=== PATIENT | female | born 1990 | race African-American/Black ===

== ENCOUNTER 2017-10-24 23:39 | Outpatient (CLI) | payer MEDICAID ==
[2017-10-25 00:41] LABS: APPEARANCE,URINE SLIGHTLY-CLOUDY; BILIRUBIN,URINE NEGATIVE (NEGATIVE); COLOR,URINE YELLOW; GLUCOSE, URINE NEGATIVE (NEGATIVE); KETONES,URINE NEGATIVE (NEGATIVE); LEUKOCYTE ESTERASE,URINE LARGE (NEGATIVE); NITRITE,URINE NEGATIVE (NEGATIVE); PROTEIN,URINE NEGATIVE (NEGATIVE); URINE SPECIFIC GRAVITY 1.009; UROBILINOGEN,URINE NEGATIVE mg/dL (<2.0)
[2017-10-25] MEDS ORDERED: CEFTRIAXONE INJ 1000 MG VIAL IM ONE (00:55)
[2017-10-25] MEDS ORDERED: LIDOCAINE 1% INJ-PF (10 MG/ML) 30 ML SDV INJ ONE (00:55)
[2017-10-25] MEDS ORDERED: LIDOCAINE 1% INJ-PF (10 MG/ML) 30 ML SDV ONE (00:57)
[2017-10-25] MEDS ORDERED: CEFTRIAXONE INJ 1000 MG VIAL ONE (00:57)
[2017-10-25 02:31] LABS: URINE AMPHETAMINES SCREEN NEGATIVE; URINE BARBITURATES SCREEN NEGATIVE; URINE BENZODIAZEPINES SCREEN NEGATIVE; URINE COCAINE SCREEN NEGATIVE; URINE MARIJUANA (THC) SCREEN NEGATIVE; URINE METHADONE SCREEN NEGATIVE; URINE PHENCYCLIDINE SCREEN NEGATIVE
== END 2017-10-25 01:21 | disposition home or self-care (01) ==
LOC: LC 23:39
PROVIDERS: ATTEND Obstetrics & Gynecology
PROC: 4A1HXCZ Monitoring of Products of Conception, Cardiac Rate, External Approach (ICD-10-PCS; principal; 2017-10-24)
DX: O23.42 Unspecified infection of urinary tract in pregnancy, second trimester (principal); Z3A.23 23 weeks gestation of pregnancy
CPT/HCPCS: 59899; 81001; 80307; J3490; J0696

== ENCOUNTER 2018-02-18 04:10 | Inpatient (IN) | payer MEDICAID ==
[2018-02-18 04:35] LABS: APPEARANCE,URINE SLIGHTLY-CLOUDY; BILIRUBIN,URINE NEGATIVE (NEGATIVE); COLOR,URINE YELLOW; GLUCOSE, URINE NEGATIVE (NEGATIVE); KETONES,URINE NEGATIVE (NEGATIVE); LEUKOCYTE ESTERASE,URINE LARGE (NEGATIVE); NITRITE,URINE NEGATIVE (NEGATIVE); PROTEIN,URINE NEGATIVE (NEGATIVE); URINE SPECIFIC GRAVITY 1.004
[2018-02-18 04:50] LABS: URINE AMPHETAMINES SCREEN NEGATIVE; URINE BARBITURATES SCREEN NEGATIVE; URINE BENZODIAZEPINES SCREEN NEGATIVE; URINE COCAINE SCREEN NEGATIVE; URINE MARIJUANA (THC) SCREEN NEGATIVE; URINE METHADONE SCREEN NEGATIVE; URINE PHENCYCLIDINE SCREEN NEGATIVE
[2018-02-18] MEDS ORDERED: RINGERS SOLUTION,LACTATED 1,000 ML IV PRN (05:03)
[2018-02-18] MEDS ORDERED: PENICILLIN G-K 5 MILLION UNIT VIAL ONE ×2 (05:06→09:08)
[2018-02-18] MEDS ORDERED: OXYTOCIN/NORMAL SALINE 20 UNIT/1,000 ML RTUINJ ONE ×2 (05:06→09:07)
[2018-02-18] MEDS ORDERED: OXYTOCIN 10 UNIT/ML VIAL ONE (05:06)
[2018-02-18] MEDS ORDERED: MISOPROSTOL 0.2 MG TABLET ONE (05:06)
[2018-02-18] MEDS ORDERED: LIDOCAINE 1% INJ-PF (10 MG/ML) 30 ML SDV ONE (05:06)
[2018-02-18] MEDS ORDERED: CLINDAMYCIN 900 MG/D5W RTU 50 ML IV SCH (05:15)
[2018-02-18] MEDS ORDERED: RINGERS SOLUTION,LACTATED 1,000 ML IV ONE (05:20)
[2018-02-18] MEDS ORDERED: PENICILLIN G POTASSIUM 5,000,000 UNIT in DEXTROSE 5%-WATER 100 ML IV ONE (05:20)
[2018-02-18 05:27] LABS: HEMATOCRIT 29.1 % (36.0-47.0); HEMOGLOBIN 10.4 g/dL (12.0-15.5); MEAN CORPUSCULAR HGB CONC 35.7 g/dL (32.0-36.0); MEAN CORPUSCULAR VOLUME 93 fl (80-97); PLATELET COUNT 112 10^3/uL (150-450); RED BLOOD COUNT 3.14 10^6/uL (3.72-5.28); RED CELL DISTRIBUTION WIDTH 14.3 % (11.5-14.0); WHITE BLOOD COUNT 8.1 10^3/uL (4.0-10.5)
[2018-02-18 05:55] LABS: ABSOLUTE LYMPHOCYTES# (MANUAL) 2.8 10^3/uL (0.5-4.7); ABSOLUTE MONOCYTES # (MANUAL) 0.4 10^3/uL (0.1-1.4); ABSOLUTE NEUTROPHILS# (MANUAL) 4.6 10^3/uL (1.7-8.2); ANISOCYTOSIS SLIGHT; BAND NEUTROPHILS % (MANUAL) 1 % (3-5); BASOPHILS % (MANUAL) 0 % (0-2); EOSINOPHILS % (MANUAL) 3 % (0-6); LYMPHOCYTES % (MANUAL) 35 % (13-45); MONOCYTES % (MANUAL) 5 % (3-13); PLATELET COMMENT DECREASED; PLATELET LARGE PRESENT; SEGMENTED NEUTROPHILS % (MAN) 56 % (42-78); TOTAL CELLS COUNTED 100
[2018-02-18] MEDS ORDERED: EPHEDRINE SULFATE INJ 50 MG/1 ML AMPULE ONE (05:56)
[2018-02-18] MEDS ORDERED: FENTANYL/BUPIVACAINE/NS/PF 300 MCG/150 ML RTUINJ EPI ONE (05:58)
[2018-02-18] MEDS ORDERED: BUPIVACAINE HCL 0.5 % INJ/PF 30 ML SDV ONE (06:25)
--- NOTE | 2018-02-18 06:27 | Admission Physical ---
Datetime Report Generated by CPN: 02/18/2018 06:27 CURRENT ADMISSION Chief Complaint: Uterine Contractions Indication for Induction: Not Applicable Admit Impression : Term, Intrauterine ; Active Labor Admit Plan: Admit to Unit; Initiate Labor Protocol ALLERGIES Medication Allergies: No Medication Allergies: No Known Allergies (10/25/2017) Latex: No Latex Allergies Food Allergies: NKA Environmental Allergies: NKA OBSTETRICAL HISTORY EDC: 02/19/2018 00:00 : 3 Para: 2 Term: 1 : 1 SAB: 0 IAB: 0 Ectopic: 0 Livin Cesareans: 0 VBACs: 0 Multiple Births: 0 Gestational Diabetes: No Rh Sensitization: No Incompetent Cervix: No NIECY: No Infertility: No ART Treatment: No Uterine Anomaly: No IUGR: No Hx Previous C/S: No Macrosomia: No Hx Loss/Stillborn: No PIH: No Hx : No Placenta Previa/Abruption: No Depression/PP Depression: No PTL/PROM: No Post Hemorrhage: No Current Procedures: Ultrasound; NST Obstetrical History Comments: G1 - 2014 Baby boy NVD @ 38 weeks G2 - 2016 Baby girl NVD @ 32 weeks after SROM G3 - Current SEE RECORDS Alcohol: No Marijuana : No Cocaine: No Other Illicit Drugs: No Cigarettes: Never Smoker. [id number] MEDICAL HISTORY Diabetes: No Blood Transfusion: No Pulmonary Disease (Asthma, TB): No Breast Disease: No Hypertension: No Assistant Professor Of Art Surgery: No Heart Disease: No Hosp/Surgery: No Autoimmune Disorder: No Anesthetic Complications: No Kidney Disease: No Abnormal Pap Smear: No Neuro/Epilepsy: No Psychiatric Disorders: No Other Medical Diseases: No Hepatitis/Liver Disease: No Significant Family History: No Varicosities/Phlebitis: No Trauma/Violence : No Thyroid Dysfunction: No INFECTIOUS HISTORY Gonorrhea: No Genital Herpes: No Chlamydia: Yes Tuberculosis: No Syphilis: No Hepatitis: No HIV/AIDS Exposure: No Rash or Viral Illness: No HPV: No Infectious History Comments: Chlamydia with first , Trich second , +GC/CHLAM, trich with this treated with rocephin in office PHYSICAL EXAM General: Normal HEENT: Normal Neurologic: Normal Thyroid: Normal Heart: Normal Lungs: Normal Breast: Normal Back: Normal Abdomen: Normal Genitourinary Exam: Deferred Extremities: Normal DTRs: Normal Pelvic Type: Adequate Vital Signs: Reviewed VAGINAL EXAM Dilatation: 6 Effacement: 75 Station: -1 MEMBRANES Membranes: Intact FETUS A EGA: 39.6 Monitoring: External US FHR- Baseline: 120 Variability: Moderate 6-25bpm Decelerations: None Presentation: Vertex Admit Comment: GBS pos PLANS FOR LABOR AND DELIVERY Labor and Delivery: None Pain Management: Epidural Feeding Preference: Formula Benefit of Breast Feed Discussed: Yes Circumcision: No INFORMED CONSENT Signature: with User ID: [email or web address]
[2018-02-18 06:58] LABS: CHLAM PCR NOT DETECTED (NOT DETECT); GON PCR NOT DETECTED (NOT DETECT)
--- NOTE | 2018-02-18 09:08 | L&D Progress Notes ---
PROGRESS NOTES Datetime Report Generated by CPN: 02/18/2018 09:08 PROGRESS NOTE Impression: Arrest of Dilatation/Descent Procedures: Artificial ROM; Sterile Vag Exam Plan: Augmentation Vital Signs : Reviewed; Within Normal Limits VAGINAL EXAM Dilatation: 6 Effacement: 75 Station: -1 Contractions: q 7-8 min MEMBRANES Membranes: Ruptured Amniotic Fluid Color: Clear FETUS A FHR - Baseline: 120 Monitoring: External US Variability: Moderate 6-25bpm Accelerations: 15X15 Decelerations: None FHR Category: Category I : 39.0 Presentation: Vertex SIGNATURE SIGNATURE: [id number] SIGNATURE: ,[id number] Signature: with User ID: [email or web address]
[2018-02-18] MEDS: PENICILLIN G POTASSIUM 2,500,000 UNIT in DEXTROSE 5%-WATER 50 ML IV SCH ×2 (09:27→20:56)
[2018-02-18] MEDS ORDERED: BENZOCAINE/MENTHOL AEROSOL SPRAY 56 ML TOP PRN (13:33)
[2018-02-18] MEDS ORDERED: MEASLES,MUMPS&RUBELLA VACC/PF 0.5 ML VIAL SUBCUT PRN (13:33)
[2018-02-18] MEDS ORDERED: OXYTOCIN/NORMAL SALINE 20 UNIT/1,000 ML RTUINJ IV PRN (13:33)
[2018-02-18] MEDS ORDERED: DIBUCAINE 1% OINTMENT 28 GM TP PRN (13:33)
[2018-02-18] MEDS ORDERED: ZOLPIDEM TARTRATE 5 MG TABLET PO PRN (13:33)
[2018-02-18] MEDS ORDERED: DIPH/PERTUSS(ACELL)/TETANUS VAC/PF 0.5 ML SYR (>=10YO) IM PRN (13:33)
[2018-02-18] MEDS ORDERED: ONDANSETRON HCL 8 MG TABLET PO PRN (13:37)
[2018-02-18] MEDS ORDERED: DIPHENHYDRAMINE HCL 25 MG CAPSULE PO PRN (13:38)
[2018-02-18] MEDS ORDERED: IBUPROFEN 800 MG TABLET ONE (13:44)
[2018-02-18] MEDS: IBUPROFEN 800 MG TABLET PO SCH ×2 (16:09→21:19)
[2018-02-18] MEDS: DOCUSATE SODIUM 100 MG CAPSULE PO SCH (18:09)
[2018-02-18] MEDS: FERROUS SULFATE 325 MG TABLET PO SCH (18:09)
[2018-02-18] MEDS: HYDROCODONE/ACETAMINOPHEN 5-325 MG TABLET PO PRN (20:13)
[2018-02-19] MEDS: IBUPROFEN 800 MG TABLET PO SCH ×3 (05:34→21:24)
[2018-02-19 06:49] LABS: HEMATOCRIT 26.8 % (36.0-47.0); HEMOGLOBIN 9.4 g/dL (12.0-15.5); MEAN CORPUSCULAR HEMOGLOBIN 32.6 pg (27.0-33.4); MEAN CORPUSCULAR HGB CONC 34.9 g/dL (32.0-36.0); MEAN CORPUSCULAR VOLUME 93 fl (80-97); PLATELET COUNT 114 10^3/uL (150-450); RED BLOOD COUNT 2.87 10^6/uL (3.72-5.28); RED CELL DISTRIBUTION WIDTH 14.1 % (11.5-14.0); WHITE BLOOD COUNT 12.6 10^3/uL (4.0-10.5)
[2018-02-19] MEDS: PRENATAL VITAMIN W DHA CAPSULE PO SCH (09:57)
[2018-02-19] MEDS: FERROUS SULFATE 325 MG TABLET PO SCH ×2 (09:57→18:19)
[2018-02-19] MEDS: DOCUSATE SODIUM 100 MG CAPSULE PO SCH ×2 (09:58→18:19)
[2018-02-19] MEDS: SENNOSIDES/DOCUSATE 8.6-50 MG 1 EACH TABLET PO SCH (09:58)
[2018-02-19] MEDS: FAMOTIDINE 20 MG TABLET PO PRN ×2 (09:58→21:24)
--- NOTE | 2018-02-19 10:48 | PDOC PROGRESS REPORT ---
Subjective-OB Progress Note for:: 02/19/18 Subjective: Pt doing well, no concerns. She reports light bleeding, reg diet and voiding without difficulty. Bonding with baby. Physical Exam (OB) Vital Signs: Temp Pulse Resp BP Pulse Ox 98.3 F 68 16 102/54 L 97 02/19/18 07:04 02/19/18 07:04 02/19/18 07:04 02/19/18 07:04 02/19/18 07:04 Intake & Output 02/18/18 02/19/18 02/20/18 07:59 06:59 06:59 Intake Total Balance Weight - Lochia Lochia Amount: Small 10-25 ml Lochia Color: Rubra/Red - Abdomen Description: Tender, Soft Hernia Present: No Fundal Description: Firm, Midline Fundal Height: u/u - u/2 Objective-Diagnostic Laboratory: 02/19/18 06:28 02/19/18 06:28 WBC 12.6 H RBC 2.87 L Hgb 9.4 L Hct 26.8 L MCV 93 MCH 32.6 MCHC 34.9 RDW 14.1 H Plt Count 114 L Assessment and Plan(PN) - Assessment and Plan (1) Vaginal delivery Is this a current diagnosis for this admission?: Yes - Time Spent with Patient Time with patient: Less than 15 minutes Medications reviewed and adjusted accordingly: Yes - Disposition Anticipated Discharge: Home Within: within 24 hours
[2018-02-19] MEDS: HYDROCODONE/ACETAMINOPHEN 5-325 MG TABLET PO PRN (18:18)
[2018-02-20] MEDS: IBUPROFEN 800 MG TABLET PO SCH ×2 (05:02→14:28)
--- NOTE | 2018-02-20 10:07 | PDOC DISCHARGE SUMMARY ---
Final Diagnosis Discharge Date: 02/20/18 - Final Diagnosis (1) Vaginal delivery Is this a current diagnosis for this admission?: Yes Discharge Data - Discharge Medication Prescriptions: Ibuprofen [Motrin 800 mg Tablet] 800 mg PO Q8HP PRN #60 tablet PRN Reason: Vit,Calc78/Iron/Folic [Prenatabs FA Tablet] 1 each PO DAILY #90 tablet Home Medications: Ferrous Sulfate [Feosol 325 mg Tablet] 325 mg PO BID tablet 02/20/18 Ibuprofen [Motrin 800 mg Tablet] 800 mg PO Q8HP PRN #60 tablet 02/20/18 Vit,Calc78/Iron/Folic [Prenatabs FA Tablet] 1 each PO DAILY #90 tablet 02/20/18 Procedures: NST Intrapartum Procedure(s): Spontaneous Vaginal Delivery - Diagnosis Test Laboratory: Temp Pulse Resp BP Pulse Ox 98.2 F 70 16 104/52 L 99 02/20/18 09:04 02/20/18 09:04 02/20/18 09:04 02/20/18 09:04 02/20/18 09:04 02/18/18 02/18/18 02/19/18 04:20 05:15 06:28 RBC 3.14 L 2.87 L Hgb 10.4 L 9.4 L Hct 29.1 L 26.8 L Urine Opiates Screen NEGATIVE - Discharge information/Instructions Discharge Activity: Balance Activity w/Rest, Pelvic Rest Discharge Diet: Regular Disposition: HOME, SELF-CARE Follow up with: [facility] in: 4, Weeks
[2018-02-20] MEDS: SENNOSIDES/DOCUSATE 8.6-50 MG 1 EACH TABLET PO SCH (10:30)
[2018-02-20] MEDS: DOCUSATE SODIUM 100 MG CAPSULE PO SCH (10:30)
[2018-02-20] MEDS: PRENATAL VITAMIN W DHA CAPSULE PO SCH (10:30)
[2018-02-20] MEDS: FAMOTIDINE 20 MG TABLET PO PRN (10:30)
[2018-02-20] MEDS: FERROUS SULFATE 325 MG TABLET PO SCH (10:30)
[2018-02-20] MEDS: HYDROCODONE/ACETAMINOPHEN 5-325 MG TABLET PO PRN (10:30)
[2018-02-20 14:19] VITALS: BP 100/55
--- NOTE | 2018-02-27 08:41 | Delivery Summary ---
Del Sum A-C Datetime Report Generated by CPN: 02/27/2018 08:41 DELIVERY PERSONNEL DELIVERY PERSONNEL: [id number] Delivery Doctor:: Raymond Jimenez MD Labor and Delivery Nurse:: Sabiha Reaves RNheel edge inker machine Nurse:: ANIL Sun Halver Machine Operator/WOOL CLASSER: Angelita Pearson, ECONOMIST RESEARCH ASSISTANT MATERNAL INFORMATION Delivery Anesthesia: Epidural Medications After Delivery: Pitocin Drip 20 Units/1000ml NSS Estimated Blood Loss (ml): 200 Maternal Complications: None Provider Comments: Pt C_P. Head delivered OA. Nuchal x 1 reduced. As anterior shoulder delivered, 2nd nuchal noted and reduced. Anterior and posterior shoulder delivered followed by rest of body. Baby placed on mom's abdomen. After 1min, cord clamped x 2 and cut. Placenta delivered intact with 3VC. Laceration repaired as noted. Fundus firm. LABOR SUMMARY EDC: 02/19/2018 00:00 No. Babies in Womb: 1 Attempted: No Labor Anesthesia: Epidural LABOR INFORMATION Reason for Induction: Not Applicable Onset of Labor: 02/19/2018 04:22 Complete Dilatation: 02/18/2018 12:24 Oxytocin: Augmentation Group B Beta Strep: Positive Antibiotics # of Doses: 2 Antibiotics Time of Last Dose: 915 Name of Antibiotic Given: PCN Steroids Given: None Reason Steroids Not Administered: Not Applicable MEMBRANES Membranes Rupture Method: Artificial Rupture of Membranes: 02/18/2018 09:03 Length of Rupture (hr): 3.85 Amniotic Fluid Color: Clear Amniotic Fluid Amount: Small STAGES OF LABOR Stage 1 hr: -16 Stage 1 min: -58 Stage 2 hr: 0 Stage 2 min: 30 Stage 3 hr: 25 Stage 3 min: 2 Total Time in Labor hr: 8 Total Time in Labor min: 34 VAGINAL DELIVERY Episiotomy: None Other Laceration: Left labial Laceration Repair: Yes Laceration Repair Note: Reapproximated with 3.0 [employer] in interrupted fashion Sponge Count Correct: N/A Sharps Count Correct: N/A CSECTION DELIVERY Primary Indication: N/A Secondary Indication: N/A CSection Incidence: N/A Labor: N/A Elective: N/A CSection Incision: N/A BABY A INFORMATION Infant Delivery Date/Time: 02/18/2018 12:54 Method of Delivery: Vaginal Method of Delivery: Vaginal Born in Route : No : N/A Forceps: N/A Vacuum Extraction: N/A Shoulder Dystocia : No PRESENTATION/POSITION BABY A Presentation: Cephalic Cephalic Presentation: Vertex Breech Presentation: N/A PLACENTA INFORMATION BABY A Placenta Delivery Time : 02/19/2018 12:56 Placenta Method of Delivery: Spontaneous Placenta Status: Delivered SCORES BABY A Heart Rate 1 min: >100 bpm Resp Effort 1 min: Good Cry Reflex Irritability 1 min: Cough or Sneeze or Pulls Away Muscle Tone 1 min: Active Motion Color 1 min: Body [place], Extremities Blue Resuscitation Effort 1 min: Tactile Stimulation SCORE 1 MIN: 9 Heart Rate 5 min: >100 bpm Resp Effort 5 min: Good Cry Reflex Irritability 5 min: Cough or Sneeze or Pulls Away Muscle Tone 5 min: Active Motion Color 5 min: Completely [place] Resuscitation Effort 5 min: N/A SCORE 5 MIN: 10 INFORMATION BABY A Gestational Age at Delivery: 39.6 Gestational Status: Full Term- 39- 40.6 Weeks Infant Outcome : Liveborn Infant Condition : Stable Infant Sex: Male IDENTIFICATION BABY A Verification Date/Time: 02/18/2018 13:15 ID Band Number: [id number] Mother's Name Verified: Yes Infant RN Verifying Infant: D Bellavance RN Additional Verifying Personnel: B Baidy RN WEIGHT/LENGTH BABY A Birthweight (gm): 3890 Infant Weight (lb): 8 Infant Weight (oz): 9 Infant Length (in): 19.50 Infant Length (cm): 49.53 CORD INFORMATION BABY A No. Cord Vessels: 3 Nuchal Cord : Around Neck x2, Loose Cord Blood Taken: Yes-For Eval (Mom's Blood Type - or O+) Infant Suction: Mouth ASSESSMENT BABY A Infant Complications: None Physical Findings at Delivery: Within Normal Limits Respirations: Appears Normal Creative Intern/ALS Called : No Care By: D Bellavance RN Transferred To: Remains with Mother BABY B INFORMATION : N/A SIGNATURES Signature: Electronically signed by Raymond Jimenez MD ([facility]) on 02/18/2018 at 13:15 with User ID: [email or web address] : I was personally available for consultation and serving as supervising physician for the MLP.
== END 2018-02-20 18:03 | disposition home or self-care (01) | DRG 807 ==
LOC: LC 04:10 → LR 05:05 → 2S 15:56
PROVIDERS: ADMIT Obstetrics & Gynecology; ATTEND Obstetrics & Gynecology
PROC: 10907ZC Drainage of Amniotic Fluid, Therapeutic from Products of Conception, Via Natural or Artificial Opening (ICD-10-PCS; 2018-02-18)
PROC: 4A1HXCZ Monitoring of Products of Conception, Cardiac Rate, External Approach (ICD-10-PCS; 2018-02-18)
PROC: 10E0XZZ Delivery of Products of Conception, External Approach (ICD-10-PCS; principal; 2018-02-19)
PROC: 0UQMXZZ Repair Vulva, External Approach (ICD-10-PCS; 2018-02-19)
DX: O99.824 Streptococcus B carrier state complicating childbirth (principal); Z37.0 Single live birth; O69.81X0 Labor and delivery complicated by cord around neck, without compression, not applicable or unspecified; O70.0 First degree perineal laceration during delivery; Z3A.39 39 weeks gestation of pregnancy
CPT/HCPCS: 36415; 80307; 81005; 85025; 85027; 86592; 86850; 86900; 86901; 87491; 87591; J2540; J2590; J3010; J3490